=== PATIENT | female | born 1970 | race Hispanic/Latino ===

== ENCOUNTER → 2016-06-29 | Day surgery (SDC) | payer OTHER ==
[~2016-06-29] MED LIST: CIPROFLOXACN500 MG PO; CLARITHROMYC500 MG PO; FLEXERIL PO; KEFLEX500 MG PO; LEVAQUIN250 MG PO; LEVOTHYROXIN25 MC1 PO; METRONIDAZOL500 MG PO; MIRALAX3350 N1 PO; NORCO1 TA1 PO; OMEPRAZOLE20 M2; PRENATA3 PO; PRILOSEC40 MG PO
[2016-06-29 13:36] LABS: HEMATOCRIT 45.3 % (37.0-47.0); HEMOGLOBIN 14.8 g/dl (12.0-16.0); IMMATURE GRANULOCYTES 0.2 % (0.0-1.0); MEAN CELL VOLUME 91.9 fL CALC (80.0-100.0); MEAN CORPUSCULAR HGB CONC 32.7 g/L CALC (32.0-36.0); NEUT# 5.36 thou/uL (2.00-7.15); RED BLOOD COUNT 4.93 mill/uL (4.20-5.60); RED CELL DISTRI WIDTH 13.4 % (11.5-15.5)
[2016-06-29 16:00] VITALS: BP 107/72
== END | disposition home or self-care (01) | DRG 770 ==
LOC: ORM 12:39
PROC: 10D17ZZ Extraction of Products of Conception, Retained, Via Natural or Artificial Opening (ICD-10-PCS; principal; 2016-06-29)
DX: O02.1 Missed abortion (principal)

== ENCOUNTER 2017-05-17 11:06 | Emergency (ER) | payer SELFPAY ==
[~2017-05-17] VITALS: Ht 154.9 cm; Wt 82.0 kg
[2017-05-17 13:57] LABS: HEMATOCRIT 41.9 % (37.0-47.0); HEMOGLOBIN 13.8 g/dl (12.0-16.0); IMMATURE GRANULOCYTES 0.3 % (0.0-1.0); MEAN CELL VOLUME 92.7 fL CALC (80.0-100.0); MEAN CORPUSCULAR HGB 30.5 pG CALC (26.0-32.0); MEAN CORPUSCULAR HGB CONC 32.9 g/L CALC (32.0-36.0); NEUT# 4.24 thou/uL (2.00-7.15); RED BLOOD COUNT 4.52 mill/uL (4.20-5.60); RED CELL DISTRI WIDTH 12.9 % (11.5-15.5)
[2017-05-17 14:10] LABS: ALBUMIN 4.1 g/dL (3.2-5.0); ALKALINE PHOSPHATASE 99 u/l (38-126); ANION GAP 15 (6-22 (CALC)); BILIRUBIN, TOTAL 0.5 mg/dL (0.0-1.4); BUN 10 mg/dL (7-17); BUN/CREATININE RATIO 14 (12-20 (CALC)); CALCIUM 9.7 mg/dL (8.4-10.2); CARBON DIOXIDE 25 mmol/l (22-30); CHLORIDE 108 mmol/l (95-108); CREATININE 0.7 mg/dL (0.5-1.0); GFR > 60 ML/MIN (>=60 (CALC)); GFR FOR AFR.AMER. > 60 ML/MIN (>=60 (CALC)); GLUCOSE 95 mg/dL (65-105); POTASSIUM 3.9 mmol/l (3.5-5.1); SGOT/AST 26 u/l (14-36); SGPT/ALT 42 u/l (9-52); SODIUM 144 mmol/l (137-146); TOTAL PROTEIN 6.8 g/dL (6.3-8.2)
[2017-05-17 15:15] LABS: URINE BILIRUBIN - DIPSTICK NEGATIVE (NEGATIVE); URINE BLOOD DIPSTICK TRACE-INTACT (NEGATIVE); URINE COLOR YELLOW; URINE GLUCOSE - DIPSTICK NEGATIVE (NEGATIVE); URINE KETONE NEGATIVE (NEGATIVE); URINE LEUK ESTERASE NEGATIVE (NEGATIVE); URINE NITRITE - DIPSTICK NEGATIVE (Negative); URINE PROTEIN - DIPSTICK NEGATIVE (NEG-TRACE); URINE UROBILINOGEN - DIPSTICK 0.2 E.U./dL (0.2)
[2017-05-17 15:20] LABS: BARBITURATES NEGATIVE (NEGATIVE); COCAINE NEGATIVE (NEGATIVE); METHADONE NEGATIVE (NEGATIVE); OXCYCODONE NEGATIVE (NEGATIVE); TETRAHYDROCANNABIONOL NEGATIVE (NEGATIVE); TRICYLIC ANTIDEPRESSANTS NEGATIVE (NEGATIVE); URINE CLARITY CLEAR
[2017-05-17] MEDS ORDERED: FIORICET PO (16:20)
[2017-05-17 16:42] VITALS: BP 126/80
== END 2017-05-17 16:51 | disposition home or self-care (01) | DRG 103 ==
LOC: ED 11:06
PROVIDERS: Emergency Medicine
DX: R51 Headache (principal)

== ENCOUNTER 2018-10-18 08:55 | Emergency (ER) | payer BC ==
[~2018-10-18] VITALS: Ht 154.9 cm; Wt 85.0 kg
[~2018-10-18 08:55] MED LIST changes: +FIORICET PO
[2018-10-18 10:00] LABS: HEMATOCRIT 40.8 % (37.0-47.0); HEMOGLOBIN 13.4 g/dl (12.0-16.0); IMMATURE GRANULOCYTES 0.4 % (0.0-5.0); MEAN CELL VOLUME 91.7 fL CALC (80.0-100.0); MEAN CORPUSCULAR HGB 30.1 pG CALC (26.0-32.0); MEAN CORPUSCULAR HGB CONC 32.8 g/L CALC (32.0-36.0); NEUT# 4.76 thou/uL (2.00-7.15); RED BLOOD COUNT 4.45 mill/uL (4.20-5.60); RED CELL DISTRI WIDTH 13.7 % (11.5-15.5)
[2018-10-18 10:11] LABS: ALBUMIN 4.3 g/dL (3.2-5.0); ALKALINE PHOSPHATASE 99 u/l (38-126); ANION GAP 14 (6-22 (CALC)); BUN 5 mg/dL (7-17); BUN/CREATININE RATIO 8 (12-20 (CALC)); CARBON DIOXIDE 23 mmol/l (22-30); CHLORIDE 106 mmol/l (95-108); CREATININE 0.6 mg/dL (0.5-1.0); GFR > 60 ML/MIN (>=60 (CALC)); GFR FOR AFR.AMER. > 60 ML/MIN (>=60 (CALC)); LIPASE 72 u/l (23-300); SODIUM 139 mmol/l (137-146); TOTAL PROTEIN 7.2 g/dL (6.3-8.2)
[2018-10-18 10:22] LABS: BILIRUBIN, TOTAL 0.9 mg/dL (0.0-1.4); SGOT/AST 71 u/l (14-36)
[2018-10-18] MEDS ORDERED: LEVOTHYROXIN50 MCG PO (10:28)
[2018-10-18] MEDS ORDERED: OMEPRAZOLE20 M2 PO (10:28)
[2018-10-18] MEDS ORDERED: PROTONIX40 M2 PO (14:17)
[2018-10-18 14:22] VITALS: BP 104/68
== END 2018-10-18 14:30 | disposition home or self-care (01) | DRG 998 ==
LOC: ED 08:55
PROVIDERS: Emergency Medicine
DX: O09.90 Supervision of high risk pregnancy, unspecified, unspecified trimester (principal); R10.9 Unspecified abdominal pain; Z3A.00 Weeks of gestation of pregnancy not specified

== ENCOUNTER 2019-02-03 20:54 | Emergency (ER) | payer OTHER, BC ==
[~2019-02-03] VITALS: Ht 154.9 cm; Wt 87.0 kg
[~2019-02-03 20:54] MED LIST changes: +LEVOTHYROXIN50 MCG PO; +OMEPRAZOLE20 M2 PO; +PROTONIX40 M2 PO
[2019-02-03 21:48] LABS: URINE BILIRUBIN - DIPSTICK NEGATIVE (NEGATIVE); URINE BLOOD DIPSTICK TRACE-LYSED (NEGATIVE); URINE CLARITY CLEAR; URINE COLOR YELLOW; URINE GLUCOSE - DIPSTICK NEGATIVE (NEGATIVE); URINE KETONE NEGATIVE (NEGATIVE); URINE LEUK ESTERASE NEGATIVE (Negative); URINE NITRITE - DIPSTICK NEGATIVE (Negative); URINE PROTEIN - DIPSTICK NEGATIVE (NEG-TRACE); URINE SPECIFIC GRAVITY 1.015; URINE UROBILINOGEN - DIPSTICK 0.2 E.U./dL (0.2)
[2019-02-03] MEDS ORDERED: IBUPROFEN600 MG PO (23:21)
[2019-02-03 23:28] VITALS: BP 132/75
== END 2019-02-03 23:28 | disposition home or self-care (01) | DRG 552 ==
LOC: ED 20:54
PROVIDERS: Emergency Medicine
DX: S16.1XXA Strain of muscle, fascia and tendon at neck level, initial encounter (principal); V59.40XA Driver of pick-up truck or van injured in collision with unspecified motor vehicles in traffic accident, initial encounter

== ENCOUNTER 2020-03-05 18:55 | Emergency (ER) | payer BC ==
[~2020-03-05 18:55] MED LIST changes: +CYCLOBENZAPR10 MG PO; +D3 HIGH POT5000 UNIT PO; +IBUPROFEN600 MG PO; +MOTRIN800 MG PO
== END 2020-03-05 19:13 | disposition left against medical advice (07) | DRG 951 ==
LOC: ED 18:55 → LWOBS 19:13
DX: Z53.21 Procedure and treatment not carried out due to patient leaving prior to being seen by health care provider (principal)

== ENCOUNTER 2021-10-07 08:58 | Day surgery (SDC) | payer OTHER ==
[~2021-10-07] VITALS: Ht 152.4 cm; Wt 86.2 kg
[~2021-10-07 08:58] MED LIST changes: +DIFLUCAN150 MG PO; +HYZAAR1 TA1 PO; +LOSARTAN; +OMEPRAZOLE DR20 MG PO; +PHENTERMINE37.5 MG PO
[2021-10-07 11:39] VITALS: BP 118/73
== END 2021-10-07 11:55 | disposition home or self-care (01) | DRG 392 ==
LOC: ENDO 08:58
PROVIDERS: ATTEND Surgery
PROC: 0DJD8ZZ Inspection of Lower Intestinal Tract, Via Natural or Artificial Opening Endoscopic (ICD-10-PCS; principal; 2021-10-07)
DX: R10.31 Right lower quadrant pain (principal); K92.1 Melena; R19.4 Change in bowel habit; I10 Essential (primary) hypertension

== ENCOUNTER 2022-04-17 09:47 | Emergency (ER) | payer SELFPAY ==
[2022-04-17] VITALS (14 sets, daily range): BP systolic 83–153; BP diastolic 40–92
[~2022-04-17] VITALS: Ht 152.4 cm; Wt 81.8 kg
[2022-04-17] MEDS ORDERED: ZOFRAN4 MG/TAB PO (11:29)
== END 2022-04-17 12:00 | disposition home or self-care (01) | DRG 605 ==
LOC: ED 09:47
DX: S00.93XA Contusion of unspecified part of head, initial encounter (principal); S06.0X0A Concussion without loss of consciousness, initial encounter; W01.0XXA Fall on same level from slipping, tripping and stumbling without subsequent striking against object, initial encounter